=== PATIENT | male | born 1950 | race African-American/Black ===

== ENCOUNTER 2017-05-09 16:25 | Outpatient (CLI) | payer MEDICARE | END 2017-05-09 16:26 | disposition home or self-care (01) | LOC: BICRAD 16:25 | PROVIDERS: ATTEND Internal Medicine | DX: R05 Cough (principal) | CPT/HCPCS: 71046 ==

== ENCOUNTER 2019-06-18 09:11 | Outpatient (CLI) | payer MEDICARE ==
--- NOTE | 2019-06-18 09:45 | RAD ---
EXAM: Chest 2 views: HISTORY: Cough COMPARISON: None. FINDINGS: There is a normal-sized cardiomediastinal silhouette. There is no evidence of consolidation, mass, or pleural effusion. Degenerative changes are seen in the spine. IMPRESSION: No evidence of acute cardiopulmonary disease
== END 2019-06-18 09:12 | disposition home or self-care (01) ==
LOC: BICRAD 09:11
PROVIDERS: ATTEND Internal Medicine
DX: R05 Cough (principal)
CPT/HCPCS: 71046

== ENCOUNTER 2020-06-29 08:24 | Outpatient (CLI) | payer MEDICARE | END 2020-06-29 08:25 | disposition home or self-care (01) | LOC: BICRAD 08:24 | PROVIDERS: ATTEND Internal Medicine | DX: R06.02 Shortness of breath (principal); R10.84 Generalized abdominal pain | CPT/HCPCS: 71046; 74019 ==

== ENCOUNTER 2020-07-23 09:01 | Outpatient (CLI) | payer MEDICARE | END 2020-07-23 09:02 | disposition home or self-care (01) | LOC: RAD 09:01 | PROVIDERS: ATTEND Internal Medicine | DX: R13.10 Dysphagia, unspecified (principal) | CPT/HCPCS: 74246 ==

== ENCOUNTER 2022-03-22 12:52 | Outpatient (CLI) | payer MEDICARE | END 2022-03-22 12:53 | disposition home or self-care (01) | LOC: CT 12:52 | PROVIDERS: ATTEND Internal Medicine | DX: R42 Dizziness and giddiness (principal); R26.81 Unsteadiness on feet; R53.1 Weakness | CPT/HCPCS: 70450; 93880 ==

== ENCOUNTER 2022-11-21 07:36 | Outpatient (CLI) | payer MEDICARE | END 2022-11-21 07:37 | disposition home or self-care (01) | LOC: BICULT 07:36 | PROVIDERS: ATTEND Internal Medicine | DX: R74.8 Abnormal levels of other serum enzymes (principal); Q44.6 Cystic disease of liver | CPT/HCPCS: 76700 ==

== ENCOUNTER 2022-12-07 08:43 | Outpatient (CLI) | payer MEDICARE ==
[2022-12-07 10:44] LABS: #Basophils 0.1 10x3/uL (0.0-0.2); #Eosinphils 0.3 10x3/uL (0.0-0.5); #Monocytes 0.7 10x3/uL (0.0-1.1); #Neutrophils 5.8 10x3/uL (1.5-8.4); %Basophils 0.6 % (0.0-2.0); %Eosinophils 2.6 % (0.0-6.0); %Lymphocytes 31.3 % (18.0-47.0); %Monocytes 7.1 % (0.0-10.0); %Neutrophils 57.8 % (40.0-75.0); Hematocrit 41.1 % (38.8-50.0); Hemoglobin 13.3 g/dL (13.5-17.5); Mean Corpuscular HGB CONC 32.4 g/dL (32.0-36.0); Mean Corpuscular Hemoglobin 30.4 pg (27.0-33.0); Mean Corpuscular Volume 94.1 fl (81.2-95.1); Mean Platelet Volume 11.6 fl (7.4-10.4); Platelet Count 244 10x3/uL (150-450); RBC Distribution Width 12.8 % (11.5-14.5); Red Blood Cell (RBC) Count 4.37 10x6/uL (4.32-5.72); White Blood Cell (WBC) Count 10.1 10x3/uL (3.5-10.5)
[2022-12-07 10:59] LABS: Prothrombin Time 10.5 sec (9.5-12.1)
[2022-12-07 11:24] LABS: Anion Gap 13 mmol/L (10-20); BUN (Urea Nitrogen) 14 mg/dL (8.4-25.7); Calc. Creatinine Clearance 0 mL/min (70-130); Calcium 9.3 mg/dL (7.8-10.44); Carbon Dioxide 26 mmol/L (23-31); Chloride 105 mmol/L (98-107); Estimated GFR 83; Glucose 90 mg/dL (83-110); Potassium 4.2 mmol/L (3.5-5.1); Sodium 140 mmol/L (136-145)
== END 2022-12-07 08:44 | disposition home or self-care (01) ==
LOC: LABBT 08:43
PROVIDERS: ATTEND Orthopaedic Surgery
DX: Z01.818 Encounter for other preprocedural examination (principal); M17.11 Unilateral primary osteoarthritis, right knee
CPT/HCPCS: 80048; 85025; 85610; 87081; 93005; 93010

== ENCOUNTER 2022-12-12 05:29 | Observation (INO) | payer MEDICARE ==
[2022-12-07 09:29] VITALS: BMI 32.3
[2022-12-12] MEDS ORDERED: Tranexamic Acid 1,000 MG/10 ML VIAL ONE (05:51)
[2022-12-12] MEDS ORDERED: Sodium Chloride 0.9% 100 ML ONE ×3 (05:51→14:49)
[2022-12-12] MEDS ORDERED: Vancomycin (BATCH) 1.5 GRAM/300 ML BAG ONE (05:51)
[2022-12-12] MEDS ORDERED: fentaNYL 50 mcg/mL 1 mL Vial ONE ×6 (06:30→15:16)
[2022-12-12] MEDS ORDERED: Midazolam HCl 2 mg/2 ml Vial ONE (06:30)
[2022-12-12] MEDS ORDERED: Lidocaine 1% (PF) 30 ML VIAL ONE (06:30)
[2022-12-12] MEDS ORDERED: Ketorolac Tromethamine 30 MG/ML VIAL ONE (06:39)
[2022-12-12] MEDS ORDERED: Ondansetron PF 4 MG/2 ML Vial ONE (06:39)
[2022-12-12] MEDS ORDERED: PHENYLEPHRINE-NS 100 MCG/ML 10 ML SYRINGE ONE (06:39)
[2022-12-12] MEDS ORDERED: Lidocaine 1% PF 5 ML VIAL ONE (06:39)
[2022-12-12] MEDS ORDERED: ePHEDrine Sulfate 50 MG/10 ML VIAL ONE (06:39)
[2022-12-12] MEDS ORDERED: PROPOFOL 200 MG/20 ML VIAL ONE (06:39)
[2022-12-12] MEDS ORDERED: EPINEPHrine 1 MG/ML AMP ONE (06:48)
[2022-12-12] MEDS ORDERED: Bupivacaine 0.25% HCL 30 ML VIAL ONE (06:48)
[2022-12-12] MEDS ORDERED: CEFAZOLIN 2 GM VIAL ONE ×2 (06:51→14:49)
[2022-12-12] MEDS ORDERED: fentaNYL PF 100 MCG/2 ML SYRINGE ONE (06:59)
[2022-12-12] MEDS ORDERED: fentaNYL 50 mcg/mL 1 mL Vial SLOW IVP PRN (07:14)
[2022-12-12] MEDS ORDERED: Promethazine HCl 25 MG/ML VIAL IM PRN ×4 (07:15→17:45)
[2022-12-12] MEDS ORDERED: traMADol HCl 50 MG TAB PO PRN ×3 (07:15→17:45)
[2022-12-12] MEDS ORDERED: Ropivacaine 0.2% 550 ML 550 ML NERVE BLCK SCH ×2 (07:15→17:45)
[2022-12-12] MEDS ORDERED: Ondansetron PF 4 MG/2 ML Vial IVP PRN ×3 (07:15→17:45)
[2022-12-12] MEDS ORDERED: Zolpidem Tartrate 5 MG TAB PO PRN ×3 (07:15→17:45)
[2022-12-12] MEDS ORDERED: Bupivacaine PF 0.5% 30 ML VIAL ONE (07:28)
[2022-12-12] MEDS ORDERED: Ondansetron HCl/PF 4 MG/2 ML Vial IVP PRN (09:13)
[2022-12-12] MEDS ORDERED: PACU-Morphine 4MG/ML VIAL SLOW IVP PRN (09:13)
[2022-12-12] MEDS ORDERED: HYDROmorphone 2 MG/ML VIAL SLOW IVP PRN (09:13)
[2022-12-12] MEDS ORDERED: diphenhydrAMINE 25 MG CAP PO PRN (09:14)
[2022-12-12] MEDS ORDERED: Acetaminophen 325 MG TAB PO PRN (09:14)
[2022-12-12] MEDS ORDERED: Aspirin 81 mg Enteric Coated Tablet PO SCH (09:30)
[2022-12-12] MEDS ORDERED: Ketorolac Tromethamine 30 MG/ML VIAL IVP SCH (14:00)
[2022-12-12] MEDS: CEFAZOLIN 2 GM in Sodium Chloride 0.9% 100 ML IVPB SCH ×2 (15:05→23:20)
[2022-12-12] MEDS: Sodium Chloride 0.9% 1,000 ML IV SCH ×2 (17:36→20:28)
[2022-12-12] MEDS: Ketorolac Tromethamine 30 MG/ML VIAL IVP SCH ×4 (17:37→23:27)
[2022-12-12] MEDS ORDERED: HYDROcodone/Acetaminophen 10/325 mg Tablet PO PRN (17:45)
[2022-12-12] MEDS: Aspirin 81 mg Enteric Coated Tablet PO SCH (20:27)
[2022-12-12] MEDS: Timolol 0.5% Ophth Soln 5 ml Bottle R EYE SCH (20:28)
[2022-12-12] MEDS: Brimonidine Tartrate 0.2% Ophth Soln 5 ml Bottle R EYE SCH (20:30)
[2022-12-12] MEDS ORDERED: Latanoprost 0.005% Ophth Soln 2.5 ml Bottle EA EYE SCH (21:00)
[2022-12-12] MEDS ORDERED: Rosuvastatin 20 MG TAB PO SCH (21:00)
[2022-12-13] MEDS: Sodium Chloride 0.9% 1,000 ML IV SCH (05:29)
[2022-12-13] MEDS: Ketorolac Tromethamine 30 MG/ML VIAL IVP SCH ×2 (05:34→10:59)
[2022-12-13 06:45] LABS: Hematocrit 36.3 % (42.0-52.0); Hemoglobin 11.6 g/dL (14.0-18.0); Mean Corpuscular Volume 97.1 fl (78.0-98.0); Mean Platelet Volume 12.3 fL (7.4-10.4); Platelet Count 140 10x3/uL (130-400); RBC Distribution Width 12.9 % (11.5-14.5); Red Blood Cell (RBC) Count 3.74 mill/uL (4.70-6.10); White Blood Cell (WBC) Count 12.7 10x3/uL (4.8-10.8)
[2022-12-13] MEDS ORDERED: Ferrous Gluconate 324 MG TAB PO SCH (08:00)
[2022-12-13] MEDS: Aspirin 81 mg Enteric Coated Tablet PO SCH (08:13)
[2022-12-13] MEDS: Brimonidine Tartrate 0.2% Ophth Soln 5 ml Bottle R EYE SCH (08:14)
[2022-12-13] MEDS: Timolol 0.5% Ophth Soln 5 ml Bottle R EYE SCH (08:15)
[2022-12-13] MEDS ORDERED: Multivitamin W/ Minerals 1 TAB PO SCH (09:00)
[2022-12-13] MEDS ORDERED: Senokot S 8.6-50 MG TAB PO SCH (09:00)
[2022-12-13 11:44] VITALS: TEMP 98.9
[2022-12-13 13:13] VITALS: BP 124/78
== END 2022-12-13 14:10 | disposition home or self-care (01) ==
LOC: SDC 05:29 → SURG A 15:56
PROVIDERS: ADMIT Orthopaedic Surgery; ATTEND Orthopaedic Surgery
PROC: 0SRC0JZ Replacement of Right Knee Joint with Synthetic Substitute, Open Approach (ICD-10-PCS; principal; 2022-12-12)
DX: M17.11 Unilateral primary osteoarthritis, right knee (principal); M21.061 Valgus deformity, not elsewhere classified, right knee; M41.26 Other idiopathic scoliosis, lumbar region; Z87.891 Personal history of nicotine dependence
CPT/HCPCS: 27447; 73560; 82962; 85027; 97110; 97116 ×2; 97530 ×2; A4306; C1776; J3010; J3370; 36415; 36416; J0171; J1885; J2001; J2250; J2405; J2704; J2795; J3490; S0020

== ENCOUNTER 2024-01-30 11:18 | Outpatient (CLI) | payer MEDICARE | END 2024-01-30 11:19 | disposition home or self-care (01) | LOC: BICRAD 11:18 | PROVIDERS: ATTEND Internal Medicine | DX: M25.551 Pain in right hip (principal); M25.552 Pain in left hip; M16.0 Bilateral primary osteoarthritis of hip ==